=== PATIENT | male | born 1985 | race Caucasian/White ===

== ENCOUNTER 2017-10-17 19:18 | Observation (INO) | payer SELFPAY ==
[~2017-10-17] VITALS: Ht 167.6 cm; Wt 81.0 kg
[~2017-10-17 19:18] MED LIST: ALEVE220 MG PO; BACTRIM,SEPT1 TABLET PO; KEFLEX500 MG PO; NEXIUM40 MG PO; OMEPRAZOLE40 M1 PO; PROTONIX40 MG PO; REGLAN10 MG PO; ULTRAM50 MG PO; VENTOLIN HFA18 GM IH; ZOFRAN8 MG PO
[2017-10-17 19:51] LABS: HEMATOCRIT 57.7 % (38.0-50.0); MCH 30.2 PG (29.0-34.0); MCHC 36.4 G/DL (30.0-36.0); PLATELET COUNT 419 K/uL (156-360); RBC DIS.WIDTH-CV 13.2 % (11.8-14.6); RBC DIS.WIDTH-SD 36.7 % (39-53); RED BLOOD COUNT 6.95 M/uL (4.00-5.50); WHITE BLOOD COUNT 23.1 K/uL (4.1-10.2)
[2017-10-17 19:52] LABS: ALBUMIN 5.4 g/dL (3.2-4.8); CHLORIDE 103 mEq/L (99-109); POTASSIUM 4.9 mEq/L (3.7-5.4); SODIUM 136 mEq/L (136-147)
[2017-10-17 19:54] LABS: GLUCOSE 193 mg/dL (70-99)
[2017-10-17 19:55] LABS: TOTAL PROTEIN 9.4 g/dL (6.4-8.3)
[2017-10-17 19:56] LABS: TOTAL BILIRUBIN 2.4 mg/dL (0.0-1.0)
[2017-10-17 19:58] LABS: ALKALINE PHOSPHATASE 113 IU/L (3-129); CREATININE 2.9 mg/dL (0.6-1.3); GFR ESTIMATE (CALCULATED) 27 mL/min/ (58.99-99999)
[2017-10-17 19:59] LABS: UREA NITROGEN (BUN) 30 mg/dL (9-23)
[2017-10-17 20:00] LABS: AST (GOT) 29 IU/L (2-34)
[2017-10-17 20:01] LABS: ALT (GPT) 37 IU/L (3-49)
[2017-10-17 21:31] LABS: LIPASE 7 U/L (1.0-51.0)
[2017-10-17] MEDS ORDERED: PRILOSEC OTC20 MG PO (23:18)
[2017-10-17 23:30] LABS: CARBON DIOXIDE (BICARBONATE) 21.1 MEQ/L (20-31)
[2017-10-17 23:35] LABS: INTER. NORMALIZED RATIO 1.1
[2017-10-17 23:37] LABS: PTT 30.8 SEC (25-37)
[2017-10-18 00:18] LABS: APPEARANCE CLOUDY ((CLEAR)); BILIRUBIN NEGATIVE; BLOOD SMALL; COLOR AMBER ((YELLOW)); GLUCOSE (STRIP) NEGATIVE; KETONES 5; LEUKOCYTES SMALL; NITRITE NEGATIVE; PROTEIN (STRIP) 30; SPECIFIC GRAVITY 1.025 (1.000-1.030); UROBILINOGEN 0.2 MG/DL (0.2-1.0)
[2017-10-18 00:29] LABS: BACTERIA NONE SEEN /HPF; EPITHELIAL CELLS RARE /HPF; HYALINE CASTS TNTC /LPF; MUCUS 2+ /LPF; RED BLOOD CELLS 0-5 /HPF (0-5); UCUL ADDED? YES; WHITE BLOOD CELLS 15-20 /HPF (0-5)
[2017-10-18 00:47] LABS: AMPHETAMINE NEGATIVE (500 ng/mL); BARBITURATES NEGATIVE (200 ng/mL); BENZODIAZEPINES NEGATIVE (150 ng/mL); BUPRENORPHINE NEGATIVE (10 ng/mL); COCAINE NEGATIVE (150 ng/mL); METHADONE NEGATIVE (200 ng/mL); METHAMPHETAMINE NEGATIVE (500 ng/mL); OPIATES (MORPHINE) PRESUMPTIVE POSITIVE (100 ng/mL); OXYCODONE NEGATIVE (100 ng/mL); PHENCYCLIDINE NEGATIVE (25 ng/mL); PROPOXYPHENE NEGATIVE (300 ng/mL); THC CANNABINOIDS PRESUMPTIVE POSITIVE (50 ng/mL); TRICYCLIC ANTIDEPRESSANTS NEGATIVE (300 ng/mL)
[2017-10-18 00:50] VITALS: BP 116/67
[2017-10-18 03:25] VITALS: BP 137/63
[2017-10-18 05:37] LABS: CARBON DIOXIDE (BICARBONATE) 20.5 MEQ/L (20-31)
[2017-10-18 05:46] LABS: HEMATOCRIT 49.9 % (38.0-50.0); MCH 30.2 PG (29.0-34.0); MCHC 35.3 G/DL (30.0-36.0); MCV 85.6 FL (86-99); RBC DIS.WIDTH-CV 12.4 % (11.8-14.6); RBC DIS.WIDTH-SD 38.5 % (39-53); WHITE BLOOD COUNT 13.1 K/uL (4.1-10.2)
[2017-10-18 05:50] LABS: HEMOGLOBIN 17.6 G/DL (12.5-16.6); RED BLOOD COUNT 5.83 M/uL (4.00-5.50)
[2017-10-18 05:52] LABS: ALBUMIN 4.3 G/DL (3.2-4.8); ALKALINE PHOSPHATASE 75 IU/L (3-129); ALT (GPT) 21 IU/L (3-49); AST (GOT) 32 IU/L (2-34); CHLORIDE 104 MEQ/L (99-109); POTASSIUM 4.6 MEQ/L (3.7-5.4); SODIUM 135 MEQ/L (136-147); TOTAL BILIRUBIN 1.6 MG/DL (0.0-1.0); TOTAL PROTEIN 6.7 G/DL (6.4-8.3); UREA NITROGEN (BUN) 25 mg/dL (9-23)
[2017-10-18 05:54] LABS: CREATININE 1.4 MG/DL (0.6-1.3); GFR ESTIMATE (CALCULATED) > 59 mL/min/ (58.99-99999); GLUCOSE 120 mg/dL (70-99)
[2017-10-18 06:55] LABS: PLAT.SUFFICIENCY ADEQUATE
[2017-10-18 07:01] LABS: PLATELET COUNT 274 K/uL (156-360)
[2017-10-18 08:30] VITALS: BP 121/71
[2017-10-18 10:00] LABS: STOOL OCCULT BLD 1ST SPECIMEN POSITIVE
[2017-10-18 10:54] LABS: C DIFF TOXIN NEGATIVE (NEGATIVE)
[2017-10-18 11:52] VITALS: BP 125/87
[2017-10-18 13:55] LABS: BASOPHIL (%) 0.3 % (0-1); EOSINOPHIL (%) 0.3 % (0-5); HEMATOCRIT 47.4 % (38.0-50.0); HEMOGLOBIN 16.9 G/DL (12.5-16.6); IMMATURE GRANULOCYTE (%) 0.5 % (0.0-0.7); LYMPHOCYTE (%) 8.9 % (15-42); LYMPHOCYTE COUNT 0.9 K/uL (1.0-2.8); MCH 30.5 PG (29.0-34.0); MCHC 35.7 G/DL (30.0-36.0); MCV 85.4 FL (86-99); MONOCYTE (%) 16.8 % (3-12); MONOCYTE COUNT 1.7 K/uL (0-0.8); NEUTROPHIL (%) 73.2 % (45-76); NEUTROPHIL COUNT 7.5 K/uL (1.8-6.4); PLATELET COUNT 243 K/uL (156-360); RBC DIS.WIDTH-CV 12.4 % (11.8-14.6); RBC DIS.WIDTH-SD 38.5 % (39-53); RED BLOOD COUNT 5.55 M/uL (4.00-5.50); WHITE BLOOD COUNT 10.2 K/uL (4.1-10.2)
[2017-10-18 14:19] LABS: CHLORIDE 105 MEQ/L (99-109); CREATININE 1.1 MG/DL (0.6-1.3); GFR ESTIMATE (CALCULATED) > 59 mL/min/ (58.99-99999); GLUCOSE 114 mg/dL (70-99); POTASSIUM 4.1 MEQ/L (3.7-5.4); SODIUM 135 MEQ/L (136-147); UREA NITROGEN (BUN) 18 mg/dL (9-23)
[2017-10-18] MEDS ORDERED: CIPRO500 MG PO (15:46)
[2017-10-18] MEDS ORDERED: FLAGYL500 MG PO (15:47)
[2017-10-18 16:24] VITALS: BP 130/68
== END 2017-10-18 17:03 | disposition home or self-care (01) ==
LOC: EME 19:18 → EDOF 23:47 → 5WEST 23:47 → ENRESERV 23:50 → 5WEST 10-18 00:34 → ENPENDDIS 10-18 16:01 → 5WEST 10-18 17:03
PROVIDERS: Hospitalist; Physician Assistant Medical
DX: N17.9 Acute kidney failure, unspecified (principal); E86.0 Dehydration; R11.2 Nausea with vomiting, unspecified; R19.7 Diarrhea, unspecified; E87.2 Acidosis; K21.9 Gastro-esophageal reflux disease without esophagitis; F17.210 Nicotine dependence, cigarettes, uncomplicated; F12.90 Cannabis use, unspecified, uncomplicated; F10.11 Alcohol abuse, in remission; F32.9 Major depressive disorder, single episode, unspecified; F41.9 Anxiety disorder, unspecified; Z86.19 Personal history of other infectious and parasitic diseases; Z81.1 Family history of alcohol abuse and dependence; Z82.5 Family history of asthma and other chronic lower respiratory diseases
CPT/HCPCS: 74176; 80048 91; 80053; 81003; 82272; 82803; 83605; 83630; 83690; 84999; 85025; 85027; 85610; 85730; 87086; 87493; 87506; 93005; 99281; 99285; G0378; G0480; J0744; J2270; J2405; J7030; J7120; S0028; S0030